=== PATIENT | male | born 1995 | race Caucasian/White ===

== ENCOUNTER 2019-06-09 08:59 | Emergency (ER) | payer SELFPAY ==
--- NOTE | 2019-06-09 09:27 | ED ---
Psychiatric Complaint - HPI Summary HPI Summary: The patient is a 23-year-old male presenting [place] [facility] [place] with a chief complaint of being brought in as 941 by police for a mental health evaluation. He reports that he was at work this morning and wasnt feeling well mentally, so he told his boss that he wanted to go home. While the patient was at home, the police arrived to bring him here because the patients boss told police that he was homicidal. The patient denies any suicidal or homicidal ideation at this time. He states that he has been dealing with a lot of stress at home, but he feels like he is managing his issues well enough. He is not in any pain. No psychiatric history. PMHx: left humerus fracture repair. Current every day smoker, occasional EtOH, marijuana use. Medications reviewed. Allergies noted. - History Of Current Complaint Chief Complaint: EDMentalHealth Time Seen by Provider: 06/09/19 09:15 Hx Obtained From: Patient Onset/Duration: Resolved Severity Currently: None Aggravating Factor(s): Recent Stress Alleviating Factor(s): Nothing Associated Signs And Symptoms: Positive: Negative Related History: Negative For: Prior Psychiatric Issues Has Suicidal: Denies: Thoughts Has Homicidal: Denies: Thoughts - Allergies/Home Medications Allergies/Adverse Reactions: Allergies Allergy/AdvReac Type Severity Reaction Status Date / Time No Known Allergies Allergy Verified 06/09/19 09:08 Home Medications: Home Medications NK [No Home Medications Reported] 06/09/19 [History Confirmed 06/09/19] PMH/Surg Hx/FS Hx/Imm Hx Endocrine/Hematology History: Denies: Hx Diabetes Cardiovascular History: Denies: Hx Hypercholesterolemia, Hx Hypertension Respiratory History: Denies: Hx Asthma Sensory History: Denies: Hx Legally Blind, Hx Deafness Opthamlomology History: Denies: Hx Legally Blind EENT History: Denies: Hx Deafness - Surgical History Surgical History: Yes Surgery Procedure, Year, and Place: left humerus fracture repair Infectious Disease History: No Infectious Disease History: Denies: Traveled Outside the [place] in Last 30 Days - Family History Known Family History: Negative: Diabetes - Social History Alcohol Use: Occasionally Hx Substance Use: Yes Substance Use Type: Reports: Marijuana Hx Tobacco Use: Yes Smoking Status (MU): Current Every Day Smoker Review of Systems Negative: Fever Negative: Other - suicidal ideation, homicidal ideation All Other Systems Reviewed And Are Negative: Yes Physical Exam - Summary Physical Exam Summary: VITAL SIGNS: Reviewed. GENERAL: Patient is a well-developed and nourished male who is lying comfortable in the stretcher. Patient is not in any acute respiratory distress. HEAD AND FACE: No signs of trauma. No ecchymosis, hematomas or skull depressions. No sinus tenderness. EYES: PERRLA, EOMI x 2, No injected conjunctiva, no nystagmus. EARS: Hearing grossly intact. Ear canals and tympanic membranes are within normal limits. MOUTH: Oropharynx within normal limits. NECK: Supple, trachea is midline, no adenopathy, no JVD, no carotid bruit, no c- spine tenderness, neck with full ROM. CHEST: Symmetric, no tenderness at palpation. LUNGS: Clear to auscultation bilaterally. No wheezing or crackles. CVS: Regular rate and rhythm, S1 and S2 present, no murmurs or gallops appreciated. ABDOMEN: Soft, non-tender. No signs of distention. No rebound, no guarding, and no masses palpated. Bowel sounds are normal. EXTREMITIES: FROM in all major joints, no edema, no cyanosis or clubbing. NEURO: Alert and oriented x 3. No acute neurological deficits. Speech is normal and follows commands. SKIN: Dry and warm. PSYCH: Denies any suicidal thoughts or plan. No homicidal thoughts or plan. No signs of psychosis or pressure speech. No tangential speech. Triage Information Reviewed: Yes Vital Signs On Initial Exam: Initial Vitals Temp Pulse Resp BP Pulse Ox 98.3 F 86 17 136/96 99 06/09/19 09:06 06/09/19 09:06 06/09/19 09:06 06/09/19 09:06 06/09/19 09:06 Vital Signs Reviewed: Yes Procedures - Sedation Patient Received Moderate/Deep Sedation with Procedure: No Diagnostics - Vital Signs Vital Signs Temp Pulse Resp BP Pulse Ox 06/09/19 09:06 98.3 F 86 17 136/96 99 - Laboratory Result Diagrams: 06/09/19 09:35 06/09/19 09:35 Lab Statement: Any lab studies that have been ordered have been reviewed, and results considered in the medical decision making process. Re-Evaluation - Re-Evaluation First Eval Re-Evaluation Time: 09:20 Comment: Patient is medically clear for mental health evaluation. Course/Dx - Course Assessment/Plan: The patient is a 23-year-old male presenting to [facility] [place] with a chief complaint of being brought in as 941 by police for a mental health evaluation. He reports that he was at work this morning and wasn t feeling well mentally, so he told his boss that he wanted to go home. While the patient was at home, the police arrived to bring him here because the patients boss told police that he was homicidal. The patient denies any suicidal or homicidal ideation at this time. He states that he has been dealing with a lot of stress at home, but he feels like he is managing his issues well enough. No other complaints. He is not in any pain. No psychiatric history. He does not take any medications. Patient is awake, alert, and oriented x3, vitals are stable. Blood work without any significant abnormalities. Toxicology is negative. Patient is medically clear. Patient is awaiting a MHE. Dr. Marcelino from psychiatry has evaluated the patient and has determined that he is safe for discharge home. Patient understands and agrees with this plan. 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 Marcelino, psychiatry, has evaluated the patient and has determined that he is safe for discharge home with plan for outpatient treatment as needed, diagnosis of mood disorder Discharge ED - Sign-Out/Discharge Documenting (check all that apply): Patient Departure - Patient will be discharged home by mental health staff. - Discharge Plan Condition: Good Disposition: HOME Patient Education Materials: Anxiety (ED), Seasonal Affective Disorder (ED) Referrals: [facility] [Outside] - Billing Disposition and Condition Condition: GOOD Disposition: Home - Attestation Statements Document Initiated by Diamondibe: Yes Documenting Scribe: Keiko Trujillo Provider For Whom Kavya is Documenting (Include Credential): Dr. Joe Varma MD Scribe Attestation: Keiko Mendoza scribed for Dr. Joe Varma MD on 06/09/19 at 1846. Scribe Documentation Reviewed: Yes Provider Attestation: The documentation as recorded by the Keiko bridges accurately reflects the service I personally performed and the decisions made by me, Dr. Joe Varma MD Status of Kavya Document: Viewed
[2019-06-09 09:44] LABS: ABS Eosinophils 0.1 10^3/ul (0-0.6); ABS Lymphocytes 2.1 10^3/ul (1.0-4.8); ABS Monocytes 0.9 10^3/ul (0-0.8); ABS Neutrophils 7.1 10^3/ul (1.5-7.7); Hematocrit 46 % (42-52); Hemoglobin 15.4 g/dL (14.0-18.0); Lymphocyte % 20.5 %; Mean Corpuscular HGB Conc 34 g/dL (31-36); Mean Corpuscular Hemoglobin 30 pg (27-31); Mean Corpuscular Volume 89 fL (80-94); Mean Platelet Volume 7.1 fL (7.4-10.4); Platelet Count 303 10^3/uL (150-450); Red Blood Count 5.14 10^6 /uL (4.18-5.48); Red Cell Distribution Width 14 % (10-15); White Blood Count 10.2 10^3/uL (3.5-10.8)
[2019-06-09 10:06] LABS: ALT 12 U/L (7-52); AST 16 U/L (13-39); Albumin 4.5 g/dL (3.2-5.2); Alkaline Phosphatase 44 U/L (34-104); Anion Gap 6 mmol/L (2-11); BUN/Creatinine Ratio 17.1 (8-20); Blood Urea Nitrogen 20 mg/dL (6-24); CO2 Carbon Dioxide 32 mmol/L (22-32); Calcium 9.9 mg/dL (8.6-10.3); Chloride 102 mmol/L (101-111); EGFR African American 94.3 (>60); Globulin 2.3 g/dL (2-4); Glucose 81 mg/dL (70-100); Potassium 4.2 mmol/L (3.5-5.0); Sodium 140 mmol/L (135-145); Total Protein 6.8 g/dL (6.4-8.9)
[2019-06-09 10:20] LABS: Acetaminophen < 15 mcg/mL; Alcohol < 10 mg/dL (<10); Salicylate < 2.50 mg/dL (<30)
[2019-06-09 10:35] LABS: TSH (Thyroid Stimulating Horm) 0.47 mcIU/mL (0.34-5.60)
[2019-06-09 14:58] VITALS: BP 138/88
== END 2019-06-09 14:20 | disposition home or self-care (01) ==
LOC: ED 08:59
DX: F39 Unspecified mood [affective] disorder (principal); F17.200 Nicotine dependence, unspecified, uncomplicated
CPT/HCPCS: 36415; 80053; 80320; 80329; 84443; 85025; 99284; G0480